=== PATIENT | male | born 1985 | race Caucasian/White ===

== ENCOUNTER 2016-08-21 21:46 | Emergency (ER) | payer OTHER | END 2016-08-22 04:57 | disposition home or self-care (01) | LOC: D.ER 21:46 | DX: J32.9 Chronic sinusitis, unspecified (principal); K27.9 Peptic ulcer, site unspecified, unspecified as acute or chronic, without hemorrhage or perforation ==

== ENCOUNTER 2018-08-25 19:47 | Emergency (ER) | payer BC ==
[~2018-08-25] VITALS: Ht 190.5 cm; Wt 147.9 kg
[2018-08-25 19:55] VITALS: Ht 190.5 cm; Wt 147.9 kg
[2018-08-25] MEDS ORDERED: PEPCID AC20 MG PO (19:56)
[2018-08-25] MEDS ORDERED: AMOXICILLIN500 M1 PO (20:37)
[2018-08-25] MEDS ORDERED: PHENERGAN DM SYR5 ML PO (20:37)
[2018-08-25] MEDS ORDERED: MEDROL DOSE PACK4 MG PO (20:37)
[2018-08-25 21:30] VITALS: BP 140/80
== END 2018-08-25 21:30 | disposition home or self-care (01) ==
LOC: D.ER 19:47
DX: J06.9 Acute upper respiratory infection, unspecified (principal); R05 Cough; R09.89 Other specified symptoms and signs involving the circulatory and respiratory systems; R50.9 Fever, unspecified; J02.9 Acute pharyngitis, unspecified; R51 Headache